=== PATIENT | female | born 1940 | race Caucasian/White ===

== ENCOUNTER → 2018-04-23 09:40 | Outpatient (CLI) | payer MEDICARE, OTHER, SELFPAY ==
--- NOTE | 2018-04-23 | DI.RAD.S_ITS ---
PROCEDURE: XR SHOULDER RT MIN 2V INDICATIONS: PAIN IN RIGHT SHOULDER,RADICULOPATHY CERVICAL MCKENZIE TECHNIQUE: 3 views of the shoulder were acquired. COMPARISON: [facility], CR, CHEST 2 VIEW, 12/07/2016, 14:43. [facility], CR, XR CERVICAL SPINE 2V OR 3V, 04/23/2018, 9:53. FINDINGS: Bones: No fractures or dislocations. No suspicious bony lesions. There is moderate matrix lesion seen involving the right humeral neck, which is attributed to an enchondroma. Age-appropriate bony degenerative changes are seen. Visualized ribs appear intact. Soft tissues: No suspicious soft tissue calcifications. The visualized lung demonstrates an unremarkable appearance. IMPRESSION: Age-appropriate right shoulder degenerative changes are seen. 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 If there is strong clinical suspicion for internal derangement of this joint, please consider a dedicated MRI for further evaluation (assuming that there is no contraindication to MRI). Dictated by: Monster Galvez M.D. on 04/23/2018 at 9:27 Approved by: Monster Galvez M.D. on 04/23/2018 at 9:28
--- NOTE | 2018-04-23 | DI.RAD.S_ITS ---
PROCEDURE: XR CERVICAL SPINE 2V OR 3V INDICATIONS: PAIN IN RIGHT SHOULDER,RADICULOPATHY CERVICAL MCKENZIE TECHNIQUE: 3 View(s) of the cervical spine were acquired. COMPARISON: None. FINDINGS: Bones: No fractures or dislocations to the T1 level. The lateral masses of C1 appear intact on the odontoid view. No suspicious bony lesions. Degenerative changes are seen, with mild disc space narrowing at C4-C5, with moderate to severe disc space narrowing at C5-C6 and C6-C7. Mild space narrowing is seen at C7-T1. bridging anterior osteophytes and endplate irregularity and sclerosis can be seen at C5-C6 and C6-C7. Minimal anterolisthesis is seen at C4-C5. There is straightening of the normal cervical lordosis. Soft tissues: No prevertebral soft tissue swelling. The visualized lung apices are unremarkable. IMPRESSION: Cervical spine degenerative changes are seen, which are most prominent at C5-C6 and C6-C7. Dictated by: Monster Galvez M.D. on 04/23/2018 at 9:25 Approved by: Monster Galvez M.D. on 04/23/2018 at 9:27
== END ==
PROVIDERS: Family Provider Physician Assistant; PCP Physician Assistant; Visit Provider Physician Assistant
DX: M25.511 Pain in right shoulder (principal); M50.122 Cervical disc disorder at C5-C6 level with radiculopathy; M48.02 Spinal stenosis, cervical region
CPT/HCPCS: 72040; 73030

== ENCOUNTER → 2018-10-09 12:00 | Outpatient (CLI) | payer MEDICARE, OTHER, SELFPAY ==
--- NOTE | 2018-10-09 | DI.MG.S_ITS ---
BILATERAL DIGITAL SCREENING MAMMOGRAM 3D/2D WITH CAD: 10/09/2018 CLINICAL: Routine screening. Family history of breast cancer. Comparison is made to exams dated: 10/04/2017 mammogram, 09/14/2016 mammogram, 09/13/2015 mammogram, 09/09/2014 mammogram, and 09/08/2013 mammogram - [facility]. The tissue of both breasts is heterogeneously dense. This may lower the sensitivity of mammography. Current study was also evaluated with a Computer Aided Detection (CAD) system. There is a mole marker on the right breast. There are mole markers on the left breast. No significant masses, calcifications, or other findings are seen in either breast. There has been no significant interval change. IMPRESSION: NEGATIVE There is no mammographic evidence of malignancy. A 1 year screening mammogram is recommended. This exam was interpreted at Station ID: [id number]. NOTE: For mammograms, a report in lay terms will be sent to the patient. Approximately 15% of breast malignancies will not be visualized mammographically. In the management of a palpable breast mass, a negative mammogram must not discourage biopsy of a clinically suspicious lesion. Electronically Signed By: Blayne mitchell/glenda:10/09/2018 18:31:26 letter sent: Normal Exam ACR BI-RADS Category 1: Negative 3341F
== END ==
PROVIDERS: Family Provider Physician Assistant; PCP Physician Assistant; Visit Provider Physician Assistant
DX: Z12.31 Encounter for screening mammogram for malignant neoplasm of breast (principal); Z80.3 Family history of malignant neoplasm of breast
CPT/HCPCS: 77063; 77067

== ENCOUNTER → 2019-12-11 11:08 | Outpatient (CLI) | payer MEDICARE, OTHER, SELFPAY ==
--- NOTE | 2019-12-11 | DI.RAD.S_ITS ---
PROCEDURE: XR HAND LT MIN 3V INDICATIONS: XR OSTEOARTHRITIS LT/RT HAND TECHNIQUE: 3 views of the hand(s) acquired. COMPARISON: None. FINDINGS: Bones: No fractures or dislocations. Carpal bones are normally aligned. No suspicious bony lesions. Moderate osteoarthritic degenerative changes noted in the first CMC joint and second DIP joint. Mild osteoarthritic changes noted in the first and second MCP joints as well as first, third and fifth DIP joints. Soft tissues: No suspicious soft tissue calcifications. IMPRESSION: Osteoarthrosis as described above. Dictated by: Telma Aguilar MD, PhD on 12/11/2019 at 14:36 Approved by: Telma Aguilar MD, PhD on 12/11/2019 at 14:38
--- NOTE | 2019-12-11 | DI.RAD.S_ITS ---
PROCEDURE: XR HAND RT MIN 3V INDICATIONS: XR OSTEOARTHRITIS LT/RT HAND TECHNIQUE: 3 views of the hand(s) acquired. COMPARISON: None. FINDINGS: Bones: No fractures or dislocations. Carpal bones are normally aligned. No suspicious bony lesions. Moderate osteoarthritic degenerative changes noted in the first CMC joint, second MCP joint and third DIP joint. Mild osteoarthritic degenerative changes noted in the second, third and fifth PIP joints and the fifth DIP joint. No osseous erosive changes. Soft tissues: No suspicious soft tissue calcifications. IMPRESSION: Osteoarthritis as described above. Dictated by: Telma Aguilar MD, PhD on 12/11/2019 at 13:50 Approved by: Telma Aguilar MD, PhD on 12/11/2019 at 14:05
== END ==
PROVIDERS: Family Provider Physician Assistant; PCP Physician Assistant; Referring Provider Physician Assistant; Visit Provider Physician Assistant
DX: M19.041 Primary osteoarthritis, right hand (principal); M19.042 Primary osteoarthritis, left hand; M18.0 Bilateral primary osteoarthritis of first carpometacarpal joints
CPT/HCPCS: 73130

== ENCOUNTER → 2020-09-14 11:12 | Outpatient (CLI) | payer MEDICARE, OTHER, SELFPAY ==
--- NOTE | 2020-09-14 | DI.MG.S_ITS ---
BILATERAL DIGITAL SCREENING MAMMOGRAM 3D/2D WITH CAD: 09/14/2020 CLINICAL: Routine screening. Family history of breast cancer. Comparison is made to exams dated: 10/09/2018 mammogram, 10/04/2017 mammogram, and 09/14/2016 mammogram - [facility]. The tissue of both breasts is heterogeneously dense. This may lower the sensitivity of mammography. Current study was also evaluated with a Computer Aided Detection (CAD) system. No significant masses, calcifications, or other findings are seen in either breast. There has been no significant interval change. IMPRESSION: NEGATIVE There is no mammographic evidence of malignancy. A 1 year screening mammogram is recommended. This exam was interpreted at Station ID: [id number]. NOTE: For mammograms, a report in lay terms will be sent to the patient. Approximately 15% of breast malignancies will not be visualized mammographically. In the management of a palpable breast mass, a negative mammogram must not discourage biopsy of a clinically suspicious lesion. Electronically Signed By: Calvin de la cruz/glenda:09/14/2020 11:52:20 letter sent: Normal Exam ACR BI-RADS Category 1: Negative 3341F
== END ==
PROVIDERS: Family Provider Physician Assistant; PCP Physician Assistant; Referring Provider Physician Assistant; Visit Provider Physician Assistant
DX: Z12.31 Encounter for screening mammogram for malignant neoplasm of breast (principal); Z80.3 Family history of malignant neoplasm of breast
CPT/HCPCS: 77063; 77067

== ENCOUNTER → 2021-03-22 10:45 | Outpatient (CLI) | payer MEDICARE, OTHER, SELFPAY ==
--- NOTE | 2021-03-22 | DI.US.S_ITS ---
PROCEDURE: US ABDOMEN COMPLETE INDICATIONS: ELEVATED LFT TECHNIQUE: Real-time scanning was performed of the abdominal and retroperitoneal organs, with image documentation. COMPARISON: None. FINDINGS: Liver: Liver is normal in size and homogeneous in echotexture. The portal vein is patent. Gallbladder: No gallbladder wall thickening, pericholecystic fluid, or shadowing gallstones. Biliary ducts: Intrahepatic bile ducts are non-dilated. Extrahepatic bile duct caliber measures 4.1 mm. Normal is 6-7 mm or less in diameter, or 10 mm or less post-cholecystectomy. Pancreas: Visualized portions of the pancreas are sonographically normal. Spleen: Spleen is normal in size and homogeneous in echotexture. Kidneys: Kidneys are normal in size and echotexture. Right kidney measures 9.4 cm long; left kidney measures 10.3 cm long. No hydronephrosis or nephrolithiasis. Echogenic focus in the upper pole, measuring up to 7.1 mm, most consistent with an angiomyolipoma. Aorta: Visualized aorta is normal in caliber at less than 3 cm. Iliacs: Proximal common iliac arteries are normal in caliber at less than 2.5 cm. IVC: Intrahepatic inferior vena cava is patent. Miscellaneous: No free abdominal fluid. IMPRESSION: No significant abnormality. Dictated by: Kana Garay M.D. on 03/22/2021 at 14:57 Approved by: Kana Garay M.D. on 03/22/2021 at 15:01
== END ==
PROVIDERS: Family Provider Physician Assistant; PCP Physician Assistant; Referring Provider Physician Assistant; Visit Provider Physician Assistant
DX: R74.01 Elevation of levels of liver transaminase levels (principal); R74.02 Elevation of levels of lactic acid dehydrogenase [LDH]; R79.89 Other specified abnormal findings of blood chemistry
CPT/HCPCS: 76700

== ENCOUNTER → 2021-09-16 10:31 | Outpatient (CLI) | payer MEDICARE, OTHER, SELFPAY ==
--- NOTE | 2021-09-16 | DI.MG.S_ITS ---
BILATERAL DIGITAL SCREENING MAMMOGRAM 3D/2D WITH CAD: 09/16/2021 CLINICAL: Routine screening. Family history of breast cancer. Comparison is made to exams dated: 09/14/2020 mammogram, 10/09/2018 mammogram, and 10/04/2017 mammogram - [facility]. The tissue of both breasts is heterogeneously dense. This may lower the sensitivity of mammography. Current study was also evaluated with a Computer Aided Detection (CAD) system. No significant masses, calcifications, or other findings are seen in either breast. There has been no significant interval change. IMPRESSION: NEGATIVE There is no mammographic evidence of malignancy. A 1 year screening mammogram is recommended. This exam was interpreted at Station ID: [id number]. NOTE: For mammograms, a report in lay terms will be sent to the patient. Approximately 15% of breast malignancies will not be visualized mammographically. In the management of a palpable breast mass, a negative mammogram must not discourage biopsy of a clinically suspicious lesion. Electronically Signed By: Troy Osorio acr/glenda:09/16/2021 10:58:06 letter sent: Normal Exam ACR BI-RADS Category 1: Negative 3341F
== END ==
PROVIDERS: Family Provider Physician Assistant; PCP Physician Assistant; Referring Provider Physician Assistant; Visit Provider Physician Assistant
DX: Z12.31 Encounter for screening mammogram for malignant neoplasm of breast (principal); Z80.3 Family history of malignant neoplasm of breast
CPT/HCPCS: 77063; 77067

== ENCOUNTER 2022-01-15 12:19 | Emergency (ER) | payer MEDICARE, OTHER, SELFPAY ==
[2022-01-15 12:24] VITALS: BP 178/84; PULSE 80; RESP 16; TEMP 36.9; O2SAT 97; BMI 24.5
--- NOTE | 2022-01-15 12:34 | ED_ITS ---
HPI - Wound/Laceration General Chief Complaint: Wound/Laceration Stated Complaint: bee sting right hand, swelling, ring stuck on hand Time Seen by Provider: 01/15/22 12:24 History of Present Illness HPI narrative: Patient is a 81-year-old female presents with insect bite to her right hand 36 hours ago. She said she was in her garden she thought it might be a be because they are many be there. However over the course of the next day her hand has gotten more swollen. Today she woke up it is really swollen and quite itchy. There is no erythema. Her ring on her ring finger is also stuck. No numbness or tingling. She denies any fever or chills. She has no prior history of celia rgic reaction to bees. sHe did not see what actually got her Related Data Home Medications Medication Instructions Recorded Confirmed cholecalciferol (vitamin D3) 50 2,000 unit PO ##0 12/07/16 mcg (2,000 unit) capsule (Vitamin D3) hydrochlorothiazide 25 mg tablet 25 mg PO QDAY ##0 12/07/16 multivitamin (Multiple Vitamins 1 tab PO QDAY ##0 12/07/16 tablet) omega 1-wos-oon-fish oil 1,000 mg 1,000 mg PO ##0 12/07/16 (120 mg-180 mg) capsule (Fish Oil) ramipril 5 mg capsule (Altace) 5 mg PO QDAY ##0 12/07/16 simvastatin 20 mg tablet 20 mg PO HS ##0 12/07/16 venlafaxine 75 mg tablet,extended 75 mg PO QDAY ##0 12/07/16 release 24 hr Previous Rx's Medication Instructions Recorded benzonatate 100 mg capsule 100 mg PO BIDP PRN #30 caps 12/07/16 (Tessalon Perles) levofloxacin 500 mg tablet 500 mg PO QDAY #10 tabs 12/07/16 (Levaquin) prednisone 20 mg tablet 20 mg PO DAILY #3 tabs 01/15/22 Allergies Allergy/AdvReac Type Severity Reaction Status Date / Time Penicillins [PENICILLINS] Allergy Unknown Unverified 09/12/17 11:53 Review of Systems Review of Systems Narrative: GENERAL: Denies chills,fever HEENT: Denies throat pain RESPIRATORY: Denies dyspnea, cough, wheezing CARDIOVASCULAR: Denies chest pain, palpitations GASTROINTESTINAL: Denies nausea, vomiting MUSCULOSKELETAL: See HPI SKIN: No rash, no laceration, no pruritus NEUROLOGIC: Denies weakness, dizziness, headache, numbness 8 point review of systems is negative except for those stated above and HPI Exam Initial Vital Signs Initial Vital Signs: Vital Signs Temperature 98.4 F 01/15/22 12:24 Pulse Rate 80 01/15/22 12:24 Respiratory Rate 16 01/15/22 12:24 Blood Pressure 178/84 H 01/15/22 12:24 Pulse Oximetry 97 01/15/22 12:24 Oxygen Delivery Method 01/15/22 12:24 GENERAL: Alert very pleasant 81-year-old female CARDIOVASCULAR: peripheral pulses in tact, cap refill <2 sec RESPIRATORY: No respiratory distress, speaks in full sentences without difficulty EXTREMITIES: Normal range of motion, no clubbing or edema. Neurovascularly intact Right hand: swelling, no significant erythema good cap refill distal pulses intact no streaking significant swelling around ring finger. No abscess no fluctuation no actually see bite costa NEUROLOGICAL: Cranial nerves II through XII grossly intact. Normal gait and speech. SKIN: Warm, dry, no petechiae, no rashes or lesions. Course Orders Ordered: Discontinued Medications Prednisone (Prednisone 20 Mg Tablet) 20 mg PO NOW ONE Stop: 01/15/22 12:51 Last Admin: 01/15/22 12:59 Dose: 20 mg Documented By: EUGENE Vital Signs Vital signs: Vital Signs - 8 hr 01/15/22 12:24 01/15/22 13:13 Temperature 98.4 F Pulse Rate 80 58 L Respiratory Rate 16 12 Blood Pressure 178/84 H 153/72 H Pulse Oximetry 97 96 Oxygen Delivery Method Room Air Room Air MDM - Wound/Laceration MDM Narrative Medical decision making narrative: Ring was easily removed with ring cutter. At this time appears to be a local reaction. No sign of infection. But is obviously swollen and she complains of pruritus. She is given prednisone. Benadryl. Instructed for her to watch very carefully. Discharge Plan Departure Patient Disposition: Home Clinical Impression: Insect bite Instructions: How to Care for an Insect Bite or Sting, DI for Insect Bites and Stings Activity Restrictions/Additional Instructions: *You have been diagnosed with insect bite *What to do: Sorry about your ring. Please keep arm elevated as often as possible. Apply ice 20-30 minutes at a time. At this time it does not appear to be infected, but a please monitor very closely. *Continue to take medications as directed Prednisone 20 mg once daily for 3 days Benadryl 25 mg every 6 hours only if needed for itching *Follow up with your primary care provider in 2-3 days or call [phone] *Return to ER if you should have monitor for redness streaking fever or any new, worsening or concerning symptoms Prescriptions: New prednisone 20 mg tablet 20 mg PO DAILY Qty: 3 0RF No Action simvastatin 20 MG tablet 20 mg PO HS Qty: 0 multivitamin [Multiple Vitamins] 1 EACH tablet 1 tab PO QDAY Qty: 0 hydrochlorothiazide 25 MG tablet 25 mg PO QDAY Qty: 0 ramipril [Altace] 5 MG capsule 5 mg PO QDAY Qty: 0 cholecalciferol (vitamin D3) [Vitamin D3] 2,000 UNIT capsule 2,000 unit PO Qty: 0 venlafaxine 75 MG tablet extended release 24hr 75 mg PO QDAY Qty: 0 omega 3-neu-aqn-fish oil [Fish Oil] 1,000 MG capsule 1,000 mg PO Qty: 0 benzonatate [Tessalon Perles] 100 MG capsule 100 mg PO BIDP PRNQty: 30 1RF levofloxacin [Levaquin] 500 MG tablet 500 mg PO QDAY Qty: 10 0RF Referrals: Rosemary Manriquez PA-C [Primary Care Provider] - Visit Report Forms: Patient Portal/API
[2022-01-15] MEDS: predniSONE 20 MG TABLET PO (12:59)
[2022-01-15 13:13] VITALS: BP 153/72; PULSE 58; RESP 12; O2SAT 96
== END 2022-01-15 13:27 | disposition home or self-care (01) ==
PROVIDERS: Emergency Provider Emergency Medicine; Family Provider Physician Assistant; PCP Physician Assistant
DX: S60.561A Insect bite (nonvenomous) of right hand, initial encounter (principal); W57.XXXA Bitten or stung by nonvenomous insect and other nonvenomous arthropods, initial encounter
CPT/HCPCS: 99283

== ENCOUNTER → 2022-03-13 15:35 | Outpatient (CLI) | payer MEDICARE, OTHER, SELFPAY ==
--- NOTE | 2022-03-13 | DI.RAD.S_ITS ---
PROCEDURE: XR HAND LT 2V INDICATIONS: PAIN TECHNIQUE: 2 views of the hand(s) acquired. COMPARISON: [facility], CR, XR HAND RT 2V, 03/13/2022, 15:45. [facility], CR, XR HAND LT MIN 3V, 12/11/2019, 10:11. FINDINGS: Bones: No acute fractures or dislocations. Carpal bones are normally aligned. No suspicious bony lesions. Severe 1st CMC joint degenerative changes. Moderate-severe polyarticular degenerative changes present elsewhere for example the 2nd MCP joint, 2nd DIP joint, and scattered other IP joints. Polyarticular lucencies also present. Soft tissues: No suspicious soft tissue calcifications. IMPRESSION: 1. Polyarticular degenerative changes. Periarticular lucencies also demonstrated indeterminate for subchondral cystic change or erosions. 2. No acute fracture visualized. Dictated by: Calvin Barboza M.D. on 03/13/2022 at 17:28 Approved by: Calvin Barboza M.D. on 03/13/2022 at 17:30
--- NOTE | 2022-03-13 15:40 | DI.RAD.S_ITS ---
PROCEDURE: XR HAND RT 2V INDICATIONS: PAIN TECHNIQUE: 2 views of the hand(s) acquired. COMPARISON: [facility], CR, XR HAND LT MIN 3V, 12/11/2019, 10:11. [facility], CR, XR HAND RT MIN 3V, 12/11/2019, 10:10. FINDINGS: Bones: No acute fractures or dislocations. Carpal bones are normally aligned. No suspicious bony lesions. Severe 1st CMC joint degenerative changes. Other polyarticular degenerative changes redemonstrated most pronounced at the 2nd MCP joint and multiple interphalangeal joints including the 3rd DIP joint and 3rd PIP joint. Polyarticular lucencies are also demonstrated. Possible widening of the scapholunate interval. Soft tissues: No suspicious soft tissue calcifications. IMPRESSION: 1. No acute fracture identified. 2. Polyarticular degenerative changes. Polyarticular lucencies are also present indeterminate for subchondral cystic change or erosions. 3. Possible widening of the scapholunate interval, raising the possibility of scapholunate ligament injury. Dictated by: Calvin Barboza M.D. on 03/13/2022 at 17:24 Approved by: Calvni Barboza M.D. on 03/13/2022 at 17:28
== END ==
PROVIDERS: Family Provider Physician Assistant; PCP Physician Assistant; Referring Provider Physician Assistant; Visit Provider Physician Assistant
DX: M19.041 Primary osteoarthritis, right hand (principal); M19.042 Primary osteoarthritis, left hand
CPT/HCPCS: 73120

== ENCOUNTER → 2022-09-27 12:50 | Outpatient (CLI) | payer MEDICARE, OTHER, SELFPAY ==
--- NOTE | 2022-09-27 | DI.MG.S_ITS ---
BILATERAL DIGITAL SCREENING MAMMOGRAM 3D/2D WITH CAD: 09/27/2022 CLINICAL: Routine screening. Family history of breast cancer. Comparison is made to exams dated: 09/16/2021 mammogram, 09/14/2020 mammogram, and 10/09/2018 mammogram - [facility]. Both breasts are heterogeneously dense, which may obscure small masses (category c / 51-75% glandular tissue). Current study was also evaluated with a Computer Aided Detection (CAD) system. No significant masses, calcifications, or other findings are seen in either breast. There has been no significant interval change. IMPRESSION: NEGATIVE There is no mammographic evidence of malignancy. A 1 year screening mammogram is recommended. Based on the Tyrer Cuzick model (a risk assessment model) the patient's lifetime risk is 2.1% and her 10 year risk is 0.0%. According to the ACR, ACS, and NCCN guidelines, an annual breast MRI exam along with mammogram is recommended if the patient's lifetime risk is 20% or greater. This exam was interpreted at Station ID: [id number]. NOTE: For mammograms, a report in lay terms will be sent to the patient. Approximately 15% of breast malignancies will not be visualized mammographically. In the management of a palpable breast mass, a negative mammogram must not discourage biopsy of a clinically suspicious lesion. Electronically Signed By: Julissa jane/glenda:09/27/2022 14:18:10 letter sent: Normal Exam ACR BI-RADS Category 1: Negative 3341F
== END ==
PROVIDERS: Family Provider Physician Assistant; PCP Physician Assistant; Referring Provider Physician Assistant; Visit Provider Physician Assistant
DX: Z12.31 Encounter for screening mammogram for malignant neoplasm of breast (principal); Z80.3 Family history of malignant neoplasm of breast
CPT/HCPCS: 77063; 77067

== ENCOUNTER → 2023-04-05 10:33 | Outpatient (CLI) | payer MEDICARE, OTHER, SELFPAY ==
--- NOTE | 2023-04-05 10:35 | DI.RAD.S_ITS ---
Bone Density Report Name: EVARISTO STOEN V Age: 82 Sex: Female Ethnicity: White Date of : 1940 Indication: postmenopausal; screening for osteoporosis; Referring Provider: CHEPE LAYNE Study: Bone densitometry was performed. Exam Date: April 05, 2023 Accession number: [id number] Bone Density: Region BMD T-score Z-score Classification AP Spine(L1-L4) 1.110 0.6 3.3 Normal Femoral Neck (Left) 0.690 -1.4 0.9 Osteopenia Total Hip (Left) 0.883 -0.5 1.6 Normal Total Forearm (Left) 0.626 0.9 4.0 Normal 1/3 Forearm (Left) 0.714 0.3 3.6 Normal UD Forearm (Left) 0.451 0.1 2.5 Normal World Health Organization criteria for BMD impression classify patients as: Normal (T-score at or above -1.0), Osteopenia (T-score between -1.0 and -2.5), or Osteoporosis (T-score at or below -2.5). 10-year Fracture Risk(1): Major Osteoporotic Fracture 13% Hip Fracture 3.1% Reported Risk Factors: [place] (), Neck BMD=0.690, BMI=23.2 (1) FRAX(R) Version 3.08. Fracture probability calculated for an untreated patient. Fracture probability may be lower if the patient has received treatment. Previous Exams: -- Region Exam Age BMD T-score BMD Change BMD Change Date g/cm2 vs Baseline vs Previous -- AP Spine (L1-L4) 04/05/2023 82 1.110 0.6 0.051 (4.8%)# 0.051 (4.8%)# 12/20/2016 76 1.059 0.1 Total Hip(Left) 04/05/2023 82 0.883 -0.5 -0.020 (-2.3%)# -0.020 (-2.3%)# 12/20/2016 76 0.904 -0.3 -- *Denotes significance at 95% confidence level, LSC for AP Spine = 0.022 g/cm2, LSC for Total Hip = 0.027 g/cm2 # Denotes dissimilar scan types or analysis methods Impression: The patient has low bone mass, based on the Left Femoral Neck T-score. The patient has an estimated ten-year risk of hip fracture of 3.1% and an estimated ten-year risk of major fracture of 13%, based on the WHO FRAX algorithm. No significant bone loss was observed. Discussion: BONE DENSITY IS LOW AT ONE OR MORE SKELETAL SITES. THE PATIENT'S BMD AND CLINICAL RISK FACTORS CONTRIBUTE TO THIS PATIENT'S INCREASED RISK OF FRACTURE. This patient's lowest T-score is low at one or more skeletal sites. It meets the World Health Organization's (WHO) criteria for low bone mass (T-score between -1.0 and -2.5). The patient's 10-year risk of hip fracture as calculated by FRAX exceeds the threshold where pharmacological therapy is recommended by the National Osteoporosis Foundation (NOF). However, all treatment decisions require clinical judgment and consideration of individual patient factors, including patient preferences, comorbidities, previous drug use, risk factors not captured in the FRAX model (e.g., frailty, falls, vitamin D deficiency, increased bone turnover, interval significant decline in bone density) and possible under or overestimation of fracture risk by FRAX. The patient should follow a healthful lifestyle (good nutrition with adequate calcium and vitamin D, and appropriate weight-bearing exercise). Follow-Up: Consider a repeat BMD and Vertebral Fracture Assessment (VFA) exam in 2 years or sooner if medically necessary, to reassess this patient's status. Reported by: BARBARA PAEZ M.D. on 04/05/2023 11:25:00 AM.
== END ==
PROVIDERS: Family Provider Physician Assistant; PCP Physician Assistant; Visit Provider Physician Assistant
DX: Z78.0 Asymptomatic menopausal state (principal); Z13.820 Encounter for screening for osteoporosis; M85.852 Other specified disorders of bone density and structure, left thigh
CPT/HCPCS: 77080; 77081

== ENCOUNTER → 2023-10-01 12:52 | Outpatient (CLI) | payer MEDICARE, OTHER, SELFPAY ==
--- NOTE | 2023-10-01 | DI.MG.S_ITS ---
BILATERAL DIGITAL SCREENING MAMMOGRAM 3D/2D WITH CAD: 10/01/2023 CLINICAL: Routine screening. Family history of breast cancer. Comparison is made to exams dated: 09/27/2022 mammogram, 09/16/2021 mammogram, and 09/14/2020 mammogram - [facility]. Both breasts are heterogeneously dense, which may obscure small masses (category c / 51-75% glandular tissue). Current study was also evaluated with a Computer Aided Detection (CAD) system. No significant masses, calcifications, or other findings are seen in either breast. There has been no significant interval change. IMPRESSION: NEGATIVE There is no mammographic evidence of malignancy. A 1 year screening mammogram is recommended. Based on the Tyrer Cuzick model (a risk assessment model) the patient's lifetime risk is 1.0% and her 10 year risk is 0.0%. According to the ACR, ACS, and NCCN guidelines, an annual breast MRI exam along with mammogram is recommended if the patient's lifetime risk is 20% or greater. This exam was interpreted at Station ID: [id number]. NOTE: For mammograms, a report in lay terms will be sent to the patient. Approximately 15% of breast malignancies will not be visualized mammographically. In the management of a palpable breast mass, a negative mammogram must not discourage biopsy of a clinically suspicious lesion. Electronically Signed By: Jose vicente/glenda:10/01/2023 16:22:27 letter sent: Normal Exam ACR BI-RADS Category 1: Negative 3341F
== END ==
LOC: MAMMO 12:54
PROVIDERS: Family Provider Physician Assistant; PCP Physician Assistant; Referring Provider Physician Assistant; Visit Provider Physician Assistant
DX: Z12.31 Encounter for screening mammogram for malignant neoplasm of breast (principal); Z80.3 Family history of malignant neoplasm of breast; R92.333 Mammographic heterogeneous density, bilateral breasts
CPT/HCPCS: 77063; 77067

== ENCOUNTER → 2024-05-06 10:49 | Outpatient (CLI) | payer MEDICARE, OTHER, SELFPAY ==
[2024-05-06 11:58] LABS: Influenza A - CEPHEID Flu A NEGATIVE (NEGATIVE); Influenza B - CEPHEID Flu B NEGATIVE (NEGATIVE); Respiratory Syncytial Virus Negative (Negative)
[2024-05-06 12:03] LABS: COVID-19 CEPHEID 4-PLEX PCR Negative (Negative)
== END ==
PROVIDERS: Family Provider Physician Assistant; PCP Physician Assistant; Visit Provider Physician Assistant
DX: R05.1 Acute cough (principal); J02.9 Acute pharyngitis, unspecified
CPT/HCPCS: 0241U; 87070

== ENCOUNTER → 2024-05-06 11:18 | Outpatient (CLI) | payer MEDICARE, OTHER, SELFPAY ==
--- NOTE | 2024-05-06 11:20 | DI.RAD.S_ITS ---
PROCEDURE: XR CHEST 2V INDICATIONS: cough and cold symptoms x 5 days getting worse TECHNIQUE: 2 views of the chest were acquired. COMPARISON: [facility], , CHEST 2 VIEW, 12/07/2016, 14:43. FINDINGS: Surgical changes and devices: None. Lungs and pleura: There is mild hyperaeration and flattening of the hemidiaphragms. No focal consolidation. No pneumothorax or pleural effusion. Mediastinum: Mediastinal contours are normal. Heart size is normal. Bones and chest wall: No suspicious bony abnormalities. Soft tissues appear unremarkable. IMPRESSION: Findings compatible with chronic obstructive pulmonary physiology. No focal consolidation seen. Dictated by: Jose Cole M.D. on 05/06/2024 at 15:45 Approved by: Jose Cole M.D. on 05/06/2024 at 15:45
== END ==
PROVIDERS: Family Provider Physician Assistant; PCP Physician Assistant; Referring Provider Physician Assistant; Visit Provider Physician Assistant
DX: J06.9 Acute upper respiratory infection, unspecified (principal); J02.9 Acute pharyngitis, unspecified; R05.1 Acute cough
CPT/HCPCS: 0241U; 71046; 87070

== ENCOUNTER → 2024-10-01 15:08 | Outpatient (CLI) | payer MEDICARE, OTHER, SELFPAY ==
--- NOTE | 2024-10-01 15:09 | DI.MG.S_ITS ---
MM screening mammo BI: 10/01/2024. BI-RADS: 1 CLINICAL: 84-year old female for bilateral screening mammogram. Tyrer-Cuzick lifetime risk of 0.8%. No personal or first-degree family history of breast cancer. Current reported family history of breast cancer: maternal aunt and paternal aunt. PRIOR EXAMS 10/01/2023, 09/27/2022, 09/16/2021, 09/14/2020, 10/09/2018, 10/04/2017, 09/14/2016, 09/13/2015. MAMMOGRAPHY TECHNIQUE: 2D and 3D (tomosynthesis) digital mammographic views obtained, with additional images as needed for full coverage. Current study was also evaluated with a Computer Aided Detection (CAD) system. DENSITY C. The breasts are heterogeneously dense, which may obscure small masses. MAMMOGRAPHY FINDINGS Bilateral: No suspicious mass, asymmetry, microcalcification, or other abnormality seen. No significant change from comparison. IMPRESSION: * No evidence of malignancy. RECOMMENDATIONS Bilateral * Annual screening mammography. OVERALL ASSESSMENT CATEGORY BI-RADS-1: Negative. [employer] recommends annual screening mammography beginning at age 40 for women with average risk of breast cancer. ELECTRONICALLY SIGNED: Julissa Noel M.D. on 10/02/2024 at 03:27:48 PM PT Interpreting Station ID: [id number]
== END ==
PROVIDERS: Family Provider Physician Assistant; PCP Physician Assistant; Referring Provider Physician Assistant; Visit Provider Physician Assistant
DX: Z12.31 Encounter for screening mammogram for malignant neoplasm of breast (principal); Z80.3 Family history of malignant neoplasm of breast; R92.333 Mammographic heterogeneous density, bilateral breasts
CPT/HCPCS: 77063; 77067

== ENCOUNTER → 2024-12-01 12:47 | Outpatient (CLI) | payer MEDICARE, OTHER, SELFPAY ==
[2024-12-01 13:37] LABS: Add Manual Diff / Slide Review NO; Basophils Absolute Auto 0 /uL (0-100); Eosinophils Absolute Auto 200 /uL (0-450); Eosinophils Percent Auto 4.2 % (2-4); Hematocrit 40.5 % (36-46); Hemoglobin 13.9 g/dL (12.0-16.0); Lymphocytes Absolute Auto 900 /uL (1100-4500); Lymphocytes Percent Auto 24.4 % (25-40); Mean Corpuscular HGB Conc 34.3 % (30-36); Mean Corpuscular Hemoglobin 35.1 PG (26-34); Mean Corpuscular Volume 102.3 fL (80-100); Monocytes Absolute Auto 300 /uL (0-900); Neutrophils Absolute Auto 2300 /uL (1500-7000); Neutrophils Percent Auto 63.4 % (50-75); Platelet Count 171 X10^3/uL (150-400); Red Blood Cell Count 3.96 X10^6/uL (4.0-5.2); Red Cell Distribution Width 14.5 % (11.6-14.8); White Blood Cell Count 3.6 X10^3/uL (4.5-11.0)
[2024-12-01 13:42] LABS: Reticulocyte Count, Percent 1.4 % (1.1-2.6)
[2024-12-01 13:46] LABS: Alanine Aminotransferase 472 IU/L (<35); Alkaline Phosphatase 140 U/L (38-126); Aspartate Aminotransferase 601 IU/L (14-36); BUN Creatinine Ratio 32.8 (6-22); Bilirubin Total 1.1 mg/dL (0.2-1.3); Blood Urea Nitrogen 19 mg/dL (7-17); Calcium 9.3 mg/dL (8.4-10.2); Carbon Dioxide 32 mmol/L (22-32); Chloride 101 mmol/L (98-107); Estimated Glomerular Filt Rate > 60 mL/min (>60); Gamma Glutamyl Transpeptidase 206 U/L (12-43); Glucose 92 mg/dL (70-99); HEMOLYSIS 24 (0-50); Lactate Dehydrogenase 363 U/L (120-246); Potassium 3.5 mmol/L (3.4-5.1); Sodium 138 mmol/L (137-145)
[2024-12-01 13:47] LABS: HEMOLYSIS < 15 (0-50); Iron 144 ug/dL (37-170)
[2024-12-01 13:48] LABS: Prothrombin Time 11.6 SECONDS (9.4-12.5)
[2024-12-01 13:50] LABS: C-Reactive Protein Quant < 0.5 mg/dL (<1.0)
[2024-12-01 13:58] LABS: Percent Iron Saturation 33 % (15-50); Total Iron Binding Capacity 437 ug/dL (265-497); Transferrin 366 mg/dL (206-381)
[2024-12-01 14:19] LABS: Ferritin 64 ng/mL (11-264)
[2024-12-03 03:08] LABS: Ceruloplasmin 30.5 mg/dL (19.0-39.0)
[2024-12-03 03:08] LABS: Alpha 1 Anti Trypsin 191 mg/dL (101-187)
== END ==
PROVIDERS: Family Provider Physician Assistant; PCP Physician Assistant; Referring Provider Physician Assistant; Visit Provider Physician Assistant
DX: R94.5 Abnormal results of liver function studies (principal); R74.01 Elevation of levels of liver transaminase levels
CPT/HCPCS: 80053; 82103; 82390; 82728; 82977; 83516; 83540; 83550; 83615; 85025; 85045; 85610; 86015; 86036; 86038; 86140; 86235; 86376; 86381

== ENCOUNTER → 2025-04-14 15:26 | Outpatient (CLI) | payer MEDICARE, OTHER, SELFPAY ==
--- NOTE | 2025-04-14 15:30 | DI.RAD.S_ITS ---
PROCEDURE: XR HAND RT MIN 3V
== END ==
PROVIDERS: Family Provider Physician Assistant; PCP Physician Assistant; Referring Provider Internal Medicine; Visit Provider Internal Medicine
DX: M19.041 Primary osteoarthritis, right hand (principal)
CPT/HCPCS: 73130